=== PATIENT | male | born 2000 | race Caucasian/White ===

== ENCOUNTER 2022-12-06 08:16 | Outpatient (AMB) | payer OTHER, SELFPAY ==
--- NOTE | 2022-12-06 08:47 | AM.OFFWIN_ITS ---
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 Patient is complaining of nausea and diarrhea for the past 12 hours. Symptoms started after he ate [place] food. No other family members sick. Physical Exam Vital Signs: Last Vital Signs Temp 97.2 F 12/06/22 08:48 Pulse 73 12/06/22 08:48 BP 120/78 12/06/22 08:48 Pulse Ox 97 12/06/22 08:48 Oxygen Delivery Method Room Air 12/06/22 08:48 Const General: cooperative and healthy appearing Nutritional Appearance: well nourished Orientation/consciousness: patient oriented x3 Limitations: no limitations HEENT Head: Yes normal to inspection Eyes General: appearance normal, both eyes and all related structures Neck Neck: Yes normal visual inspection Chest Chest palpation & inspection: normal palpation of entire chest wall Resp Effort & Inspection: normal respiratory effort Neuro General: patient oriented x3 Assessment & Plan Assessment & Plan (1) Gastroenteritis: Code(s): K52.9 - Noninfective gastroenteritis and colitis, unspecified Plan: Self-limiting illness. Increase fluid intake. If symptoms do not improve to follow-up here. Note for work for today given. Coding Level of Care Code Est Pt Level 3 (02705) Diagnoses Gastroenteritis K52.9
[2022-12-06 08:48] VITALS: BP 120/78; PULSE 73; TEMP 36.2; O2SAT 97
== END 2022-12-06 10:00 | disposition home or self-care (01) ==
PROVIDERS: Visit Provider Internal Medicine
DX: K52.9 Noninfective gastroenteritis and colitis, unspecified (principal)
CPT/HCPCS: 99213